=== PATIENT | male | born 1965 | race Caucasian/White ===

== ENCOUNTER 2016-08-27 11:50 | Emergency (ER) | payer SELFPAY ==
[2016-08-27] MEDS ORDERED: KETOROLAC TROMETHAMINE 60 MG/2 ML VIAL IM ONE ×2 (13:58→14:05)
[2016-08-27] MEDS ORDERED: CYCLOBENZAPRINE HCL 10 MG TABLET PO ONE (13:59)
[2016-08-27] MEDS ORDERED: CYCLOBENZAPRINE HCL 10 MG TABLET ONE (14:05)
--- NOTE | 2016-08-27 14:12 | ERNOTE ---
Back Pain ER HPI Date of Service: 08/27/16 Time Seen by Provider: 08/27/16 13:27 Source: patient Exam Limitations: no limitations Immunizations: IMMUNIZATION HX Immunizations Up to Date Yes History of Influenza Vaccine No Hx Pneumococcal Vaccination No Allergies/Adverse Reactions: Allergies No Known Allergies Allergy (Unverified 08/27/16 12:24) Home Medications: HOME MEDICATIONS Cyclobenzaprine HCl [Flexeril] 10 mg PO TID PRN #30 tab 08/27/16 [Last Taken Unknown] Naproxen [Naprosyn] 500 mg PO BID PRN #60 tab 08/27/16 [Last Taken Unknown] Narrative: Pt. comes in with c/o back pain for three-four days after he felt a pop when loading laundry from the washer to the dryer. Pt. denies any SOB, CP, NVD, numbness, tingling, or incontinence of bowel and bladder. Pt. has a hx of fractures of his back due to previous injuries. Pt. also has a hx of chronic pain in his back that he usually treats with rest, heat, and ice and it is usually tolerable. Pt. states that he used all of these modalities for pain relief over the past three days including Tylenol and Ibuprofen and it has not helped. Review of Systems - Review of Systems Constitutional: Present: no symptoms reported. Absent: recent illness, fever, chills, weakness, fatigue, malaise EYE: Present: no symptoms reported ENT: Present: no symptoms reported Respiratory: Present: no symptoms reported. Absent: shortness of breath, cough , wheezing Cardiology: Present: no symptoms reported. Absent: chest pain, palpitations, edema Gastrointestinal/Abdominal: Present: no symptoms reported. Absent: nausea, vomiting, diarrhea Genitourinary: Present: no symptoms reported Musculoskeletal: Present: back pain - T10- L5. Absent: neck pain, joint pain Skin: Present: no symptoms reported Neurological: Present: no symptoms reported. Absent: headache, dizziness/light- headedness, numbness, tingling All Other Systems: All systems neg except as marked - Patient's Past Medical History Patient History - Medical: No pertinent hx Patient History - Cardiac/Respiratory: Hypertension - Family History Mother Family History - Medical: No pertinent hx Father Family History - Medical: No pertinent hx - Social History Living Situations: alone Psych History: No pertinent hx Smoking Status: Current every day smoker Patient requests Smoking Cessation Consult: No Initiate information on Smoking Cessation: No Alcohol Use: occasionally Drug Use: none - Immunizations Immunizations Up to Date: Yes Hx Pneumococcal Vaccination: No History of Influenza Vaccine: No Physical Exam - Physical Exam General Appearance: Present: wd/wn, alert, no apparent distress Eye Exam: Normal inspection: bilateral, PERRL: bilateral, EOMI: bilateral Ears, Nose, Throat: Present: normal ENT inspection, normal pharynx Neck: Present: normal inspection, nontender. Absent: lymphadenopathy (R), lymphadenopathy (L) Respiratory: Present: no respiratory distress, normal breath sounds, no accessory muscle use, chest nontender, lungs clear Cardiovascular/Chest: Present: regular rate, rhythm, no murmur, normal peripheral pulses Gastrointestinal/Abdominal: Present: normal bowel sounds, nontender, nondistended, soft, no organomegaly Back Exam: Present: vertebral tenderness - T10- L5, decreased range of motion, muscle spasm - B Extremity Exam: Present: normal inspection, non-tender, normal range of motion, no edema Neurological Exam: Present: alert, oriented, normal mood/affect, no motor/ sensory deficits Skin Exam: Present: normal color, warm/dry. Absent: pallor, skin rash ED Progress - Date and Time Seen: Date and Time: 08/27/16 14:[address] Sol and pt. to see him upon follow up. Dr sol feels pt safe to go home with lifting restrictions and antiinflammatories for pain. - Vital Signs Patient's Vital Signs:: I have reviewed the patient's vital signs. Vital Signs: Vital Signs 08/27/16 08/27/16 12:24 13:27 Temperature 36.9 C 37.2 C Pulse Rate 83 73 Respiratory 14 17 Rate Blood Pressure 161/94 146/96 O2 Sat by Pulse 94 98 Oximetry - X-Ray X-Ray #1 X-Ray: lumbosacral Interpretation: Reviewed by me X-ray Comments: L1-5 ddd X-Ray #2 X-Ray: thoracic Interpretation: Reviewed by me X-ray Comments: Compression fractures T6 and T11 no retropulsion - Progress/Reassessment Chief Complaint: Back Pain Progress:: Improved Departure Clinical Impression: Lumbar degenerative disc disease Thoracic compression fracture Qualifiers: Encounter type: initial encounter Fracture type: closed Qualified Code(s): S22.000A - Wedge compression fracture of unspecified thoracic vertebra, initial encounter for closed fracture - Departure Disposition: Home self-care Condition: Good Instructions: Spinal Compression Fracture, Degenerative Disk Disease Additional Instructions: Please follow up with Dr Sol as scheduled. Referrals: Edward Sol MD [[facility]] - Prescriptions: Cyclobenzaprine HCl [Flexeril] 10 mg PO TID PRN #30 tab PRN Reason: MUSCLE SPASMS Naproxen [Naprosyn] 500 mg PO BID PRN #60 tab PRN Reason: Pain
--- OUTSIDE RECORDS SUMMARY | 2016-08-27 14:17 | XMS REPORT | Continuity of Care Document ---
:1965 Author Organization [facility] ([facility]) Address [address] [place] [address] Phone [phone] Care Team Providers Name Role Phone File, No Provider On Primary Care Provider Unavailable Source Comments This disclosure is being made pursuant to the Care Everywhere program, applicable federal and state laws, and may not contain all informaitonavailable regarding this patient.[facility] ([facility]) Active Allergies and Adverse Reactions No Known Allergies Current Medications Prescription Sig. Disp. Refills Start Date End Date Status Cephalexin 500 mg Tab Take 500 mg by Active mouth every 6 hours. HYDROcodone-acetaminophen Take 1 Tab by Active (VICODIN) 5-500 mg per mouth every 6 tablet hours as needed. Active Problems Not on file Social History Tobacco Use Types Packs/Day Years Used Date Never Assessed Last Filed Vital Signs Vital Sign Reading Time Taken Blood Pressure 138/86 02/01/2011 9:20 AM CDT Pulse 63 02/01/2011 9:20 AM CDT Temperature - - Respiratory Rate - - Height - - Weight - - Body Mass Index - - Oxygen Saturation - - Plan of Care Health Maintenance Due Date Last Done Comments Hepatitis B Vaccine (1 of 3 - Primary Series) 1965 Tdap Vaccine 1978 Lipid Disorder Screening 1985 MMR Vaccine 1985 Td Vaccine 1985 Influenza Vaccine: Seasonal (#1) 12/26/2015 Results from Last 3 Months Not on file
[2016-08-27] MEDS ORDERED: LIDOCAINE 1 PATCH ADH..PATCH TP ONE (15:30)
[2016-08-27 15:35] VITALS: BP 150/92
== END 2016-08-27 15:30 | disposition home or self-care (01) ==
LOC: ER 11:50
DX: M51.36 Other intervertebral disc degeneration, lumbar region (principal); S22.059A Unspecified fracture of T5-T6 vertebra, initial encounter for closed fracture; S22.089A Unspecified fracture of T11-T12 vertebra, initial encounter for closed fracture; F17.200 Nicotine dependence, unspecified, uncomplicated; X50.1XXA Overexertion from prolonged static or awkward postures, initial encounter